=== PATIENT | male | born 1955 | race Hispanic/Latino ===

== ENCOUNTER 2019-04-03 18:21 | Emergency (ER) | payer OTHER, SELFPAY ==
[2019-04-03] MEDS ORDERED: Lidocaine 1% w/Epinephrine 1:100K 20 ML VIAL ONE (18:37)
== END 2019-04-03 19:49 | disposition home or self-care (01) ==
LOC: ERS 18:21
DX: T82.838A Hemorrhage due to vascular prosthetic devices, implants and grafts, initial encounter (principal); I12.0 Hypertensive chronic kidney disease with stage 5 chronic kidney disease or end stage renal disease; N18.6 End stage renal disease; E10.22 Type 1 diabetes mellitus with diabetic chronic kidney disease
CPT/HCPCS: 12020; J2001

== ENCOUNTER 2019-04-18 16:37 | Emergency (ER) | payer OTHER | END 2019-04-18 17:00 | disposition home or self-care (01) | LOC: ERS 16:37 | DX: T82.838A Hemorrhage due to vascular prosthetic devices, implants and grafts, initial encounter (principal) | CPT/HCPCS: 99284 ==

== ENCOUNTER 2020-10-07 16:18 | Emergency (ER) | payer MEDICARE, SELFPAY | END 2020-10-07 17:32 | disposition home or self-care (01) | LOC: ERS 16:18 | DX: T82.838A Hemorrhage due to vascular prosthetic devices, implants and grafts, initial encounter (principal); E10.9 Type 1 diabetes mellitus without complications; I10 Essential (primary) hypertension | CPT/HCPCS: 99284 ==

== ENCOUNTER 2022-03-29 09:40 | Outpatient (CLI) | payer MEDICARE ==
[2022-03-29 20:29] LABS: SARS-CoV-2 PCR by NAA Not Detected (NotDetected)
== END 2022-03-29 09:41 | disposition home or self-care (01) ==
LOC: LABBT 09:40
PROVIDERS: ATTEND Ophthalmology Retina Specialist
DX: H35.371 Puckering of macula, right eye (principal); H54.7 Unspecified visual loss; Z20.822 Contact with and (suspected) exposure to COVID-19
CPT/HCPCS: U0003; U0005

== ENCOUNTER 2022-04-01 07:41 | Day surgery (SDC) | payer MEDICARE ==
[2022-03-30 14:18] VITALS: BMI 26.7
[~2022-04-01 07:41] MED LIST: Cyclopentolate 1% Opth Drop 2 ML BOT FS SCH; EPINEPHrine 0.3 MG in Ophthalmic Irrigation Solution 500 ML IRR SCH; Fluorouracil 100 MG, EPINEPHrine 0.3 MG in Ophthalmic Irrigation Solution 500 ML IRR SCH; Phenylephrine 2.5% Ophth Soln 5 ML BOT FS SCH
[2022-04-01] MEDS ORDERED: Midazolam HCl 2 mg/2 ml Vial ONE (07:51)
[2022-04-01] MEDS ORDERED: Cyclopentolate 1% Opth Drop 2 ML BOT ONE (08:00)
[2022-04-01] MEDS ORDERED: Phenylephrine 2.5% Ophth Soln 5 ML BOT ONE (08:00)
[2022-04-01] MEDS ORDERED: Maxitrol 0.1% Opth Oint 3.5 GM TUBE ONE (09:00)
[2022-04-01] MEDS ORDERED: Triamcinolone 40 MG/ML VIAL ONE (09:00)
[2022-04-01] MEDS ORDERED: PROPOFOL 200 MG/20 ML VIAL ONE (09:00)
[2022-04-01] MEDS ORDERED: CEFAZOLIN 1 GM VIAL ONE (09:00)
[2022-04-01] MEDS ORDERED: Bupivacaine 0.75% 10 ML VIAL ONE (09:00)
[2022-04-01] MEDS ORDERED: Lidocaine 4% PF 5 ML AMP ONE (09:00)
[2022-04-01] MEDS ORDERED: Lidocaine 1% PF 5 ML VIAL ONE (09:00)
== END 2022-04-01 10:40 | disposition home or self-care (01) ==
LOC: SDC 07:41
PROVIDERS: ATTEND Ophthalmology Retina Specialist
PROC: 08T43ZZ Resection of Right Vitreous, Percutaneous Approach (ICD-10-PCS; principal; 2022-04-01)
PROC: 08NE3ZZ Release Right Retina, Percutaneous Approach (ICD-10-PCS; 2022-04-01)
DX: H35.371 Puckering of macula, right eye (principal); Z79.84 Long term (current) use of oral hypoglycemic drugs; Z79.899 Other long term (current) drug therapy
CPT/HCPCS: J0171; J0690; J2250; J2704; J3301; J3490; J9190